=== PATIENT | male | born 1960 | race Caucasian/White ===

== ENCOUNTER 2017-07-23 17:10 | Inpatient (IN) | payer MEDICARE, MEDICAID ==
[~2017-07-23] VITALS: Ht 170.2 cm; Wt 68.5 kg
[2017-07-23] MEDS ORDERED: CHLORDIAZEPOXIDE PO (17:30)
[2017-07-23] MEDS ORDERED: VITAMINS (17:30)
[2017-07-23] MEDS ORDERED: ACET-73 PO (17:30)
--- NOTE | 2017-07-23 18:20 | NUR ---
PATIENT WAS MEDICALLY CLEARED BY DR BOWERS.
--- NOTE | 2017-07-23 18:29 | NUR ---
Pt. admitted to [facility], under care of Dr. BECKHAM Belongs List completed
[2017-07-23 18:53] VITALS: BP 124/81
[2017-07-23] MEDS ORDERED: ACETAMINOPHEN 325 MG TABLET PO PRN (20:15)
[2017-07-23] MEDS ORDERED: MAG HYDROX/AL HYDROX/SIMETH 30 ML LIQUID UDC PO PRN (20:15)
[2017-07-23] MEDS ORDERED: MAGNESIUM HYDROXIDE 30 ML LIQUID UDC PO PRN (20:15)
[2017-07-23] MEDS ORDERED: TEMAZEPAM 7.5 MG CAPSULE PO PRN (20:15)
[2017-07-23] MEDS ORDERED: LORAZEPAM 1 MG TABLET PO PRN (20:15)
[2017-07-23 20:47] VITALS: BP 114/79
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
--- NOTE | 2017-07-24 06:48 | NUR ---
YESTERDAY'S ADMISSION. GRADUALLY ADJUSTING TO HIS NEW ENVIRONMENT.SLEPT WELL APPROX. 8HRS.NO EXPRESSIONS OF SADNESS OR HEARING VOICES.WILL COTINUE TO MONITOR.
[2017-07-24 07:14] LABS: BASOPHILS # (AUTO) 0.1 K/uL (0.0-8.0); BASOPHILS % (AUTO) 0.9 % (0.0-2.0); EOSINOPHILS # (AUTO) 0.1 K/uL (0.0-0.7); HEMATOCRIT 42.3 % (36.7-47.1); HEMOGLOBIN 14.9 g/dL (12.5-16.3); LYMPHOCYTES # (AUTO) 1.8 K/uL (20.0-40.0); LYMPHOCYTES % (AUTO) 25.2 % (20.5-51.5); MEAN CORPUSCULAR HEMOGLOBIN 32.9 uug (23.8-33.4); MEAN CORPUSCULAR HGB CONC 35 g/dL (32.5-36.3); MEAN CORPUSCULAR VOLUME 93.7 fL (73.0-96.2); MONOCYTES # (AUTO) 0.6 K/uL (2.0-10.0); MONOCYTES % (AUTO) 9.1 % (0.0-11.0); NEUTROPHILS # (AUTO) 4.4 K/uL (1.8-8.9); NEUTROPHILS % (AUTO) 62.8 % (38.5-71.5); PLATELET COUNT (AUTO) 320 K/uL (152-348); RED BLOOD CELL COUNT(AUTO) 4.52 MIL/uL (4.06-5.63)
[2017-07-24 07:30] VITALS: BP 117/68
[2017-07-24 07:30] LABS: BILIRUBIN,TOTAL 0.4 mg/dL (0.2-1.0); CREATININE 1.2 mg/dL (0.6-1.3); POTASSIUM 4.1 mmol/L (3.5-5.1); TOTAL PROTEIN, SERUM 6.8 g/dL (6.4-8.2)
[2017-07-24 08:19] LABS: THYROID STIMULATING HORMONE 4.452 mIU/mL (0.358-3.740)
[2017-07-24] MEDS ORDERED: PNEUMOCOCCAL 23-VAL P-SAC VAC 0.5 ML VIAL IM ONE (10:00)
[2017-07-24 15:51] VITALS: BP 104/73
[2017-07-24 20:27] VITALS: BP 114/87
[2017-07-25 07:30] VITALS: BP 103/64
[2017-07-25] MEDS: SERTRALINE HCL 50 MG TABLET PO SCH (08:54)
[2017-07-25 15:41] VITALS: BP 132/81
[2017-07-25 20:18] VITALS: BP 102/67
[2017-07-26 07:30] VITALS: BP 98/60
[2017-07-26 08:03] LABS: *BILIRUBIN,URIN NEGATIVE (NEGATIVE); *BLOOD, URINE NEGATIVE (NEGATIVE); *CLARITY,URINE CLEAR (CLEAR); *COLOR,URINE YELLOW (YELLOW); *KETONES,URINE NEGATIVE (NEGATIVE); *PROTEIN,URINE NEGATIVE (NEGATIVE); LEUKOCYTE ESTERASE ,URINE NEGATIVE (NEGATIVE); NITRITE, URINE NEGATIVE (NEGATIVE); UGLUCOSE NEGATIVE (NEGATIVE)
[2017-07-26] MEDS: SERTRALINE HCL 50 MG TABLET PO SCH (08:10)
[2017-07-26 08:30] LABS: BACTERIA,URINE FEW /HPF (NONE SEEN); RBC,URINE 0-3 /HPF (0-3); SQUAMOUS EPITHELIAL CELL,UR FEW /HPF (NONE SEEN); WBC,URINE 0-3 /HPF (0-3)
--- NOTE | 2017-07-26 14:13 | NUR ---
Initial DC Plan: Patient currently lives in a shed, but is currently unable to provide a specific address. SW will follow up with MD, patient, and patient's sister to discuss most appropriate discharge plans. Patient will be provided a brief substance abuse intervention and provided outpatient referrals. SW will form a safe and proper discharge.
[2017-07-26 15:39] VITALS: BP 113/68
[2017-07-26] MEDS ORDERED: IBUPROFEN 400 MG TABLET PO PRN (16:00)
[2017-07-26] MEDS: LIDOCAINE 5% PATCH TD SCH (16:16)
[2017-07-26 19:30] VITALS: BP 127/78
--- NOTE | 2017-07-26 20:00 | NUR ---
RECEIVED PATIENT IN THE DAY ROOM, HE IS NOTED A/O X 3, PLEASANT AND COOPERATIVE. NOTED HYPERVERBAL, FAIR INSIGHT TO THE REASON FOR HER ADMISSION. HE STATED, "AFTER I AM D/C FROM THIS HOSPITAL I AM GOING TO STAY WITH MY SISTER". HE DENIES SI/HI/VH/AH AND HE IS ABLE TO CFS. ABLE TO COMPLY WITH MEDICATION REGIMENT AT THIS TIME. SAFETY EMPHASIS. WILL CONTINUE TO MONITOR.
--- NOTE | 2017-07-27 06:31 | NUR ---
PATIENT SLEPT FOR APPROX 7.30 HRS THROUGH THE NIGHT. HAD A SHOWER THIS MORNING. WILL CONTINUE TO MONITOR.
[2017-07-27 07:05] LABS: BASOPHILS # (AUTO) 0.1 K/uL (0.0-8.0); BASOPHILS % (AUTO) 1.2 % (0.0-2.0); EOSINOPHILS # (AUTO) 0.2 K/uL (0.0-0.7); EOSINOPHILS % (AUTO) 2.7 % (0.0-7.0); HEMATOCRIT 45.5 % (36.7-47.1); HEMOGLOBIN 15.8 g/dL (12.5-16.3); LYMPHOCYTES # (AUTO) 1.9 K/uL (20.0-40.0); LYMPHOCYTES % (AUTO) 22.8 % (20.5-51.5); MEAN CORPUSCULAR HEMOGLOBIN 32.9 uug (23.8-33.4); MEAN CORPUSCULAR HGB CONC 35 g/dL (32.5-36.3); MEAN CORPUSCULAR VOLUME 94.5 fL (73.0-96.2); MONOCYTES # (AUTO) 0.6 K/uL (2.0-10.0); MONOCYTES % (AUTO) 7.6 % (0.0-11.0); NEUTROPHILS # (AUTO) 5.5 K/uL (1.8-8.9); NEUTROPHILS % (AUTO) 65.7 % (38.5-71.5); PLATELET COUNT (AUTO) 371 K/uL (152-348); RED BLOOD CELL COUNT(AUTO) 4.81 MIL/uL (4.06-5.63); WHITE BLOOD COUNT (AUTO) 8.3 K/uL (3.6-10.2)
[2017-07-27 07:16] LABS: CREATININE 1.3 mg/dL (0.6-1.3); MAGNESIUM 2.2 mg/dL (1.8-2.4); PHOSPHOROUS 3.9 mg/dL (2.5-4.9); POTASSIUM 4.4 mmol/L (3.5-5.1)
[2017-07-27 08:00] VITALS: BP 98/63
[2017-07-27] MEDS: SERTRALINE HCL 50 MG TABLET PO SCH (09:02)
[2017-07-27] MEDS: LIDOCAINE 5% PATCH TD SCH (09:02)
[2017-07-27 16:00] VITALS: BP 108/66
[2017-07-27 19:30] VITALS: BP 119/81
--- NOTE | 2017-07-27 20:00 | NUR ---
RECEIVED PATIENT IN THE DAY ROOM, HE IS NOTED A/O X 3, PLEASANT AND COOPERATIVE. FAIR INSIGHT TO THE REASON FOR HIS ADMISSION. HE DENIES SI/HI/VH/AH AND HE IS ABLE TO CFS. ABLE TO COMPLY WITH MEDICATION REGIMENT AT THIS TIME. SAFETY EMPHASIS. WILL CONTINUE TO MONITOR.
[2017-07-28 08:00] VITALS: BP 97/61
[2017-07-28] MEDS: LIDOCAINE 5% PATCH TD SCH (08:57)
[2017-07-28] MEDS: SERTRALINE HCL 50 MG TABLET PO SCH (09:09)
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
[2017-07-28 16:00] VITALS: BP 104/52
[2017-07-28 20:58] VITALS: BP 107/58
--- NOTE | 2017-07-29 06:10 | NUR ---
GPS/NSG Patient first observed lying in bed. Patient had no HS medication, offered prn for sleep however did not require it. Patient slept a total of eight hours, continue to monitor for safety as well as follow plan of care.
[2017-07-29 07:30] VITALS: BP 103/61
[2017-07-29] MEDS: SERTRALINE HCL 50 MG TABLET PO SCH (09:15)
[2017-07-29] MEDS: LIDOCAINE 5% PATCH TD SCH (09:16)
[2017-07-29 15:47] VITALS: BP 103/61
[2017-07-29 21:37] VITALS: BP 116/72
[2017-07-30 07:30] VITALS: BP 92/50
[2017-07-30] MEDS: SERTRALINE HCL 50 MG TABLET PO SCH (08:40)
[2017-07-30] MEDS: LIDOCAINE 5% PATCH TD SCH (08:41)
[2017-07-30 16:59] VITALS: BP 112/62
[2017-07-30 20:00] VITALS: BP 110/65
[2017-07-31 07:30] VITALS: BP 99/60
[2017-07-31] MEDS: LIDOCAINE 5% PATCH TD SCH (08:21)
[2017-07-31] MEDS: SERTRALINE HCL 50 MG TABLET PO SCH (08:21)
[2017-07-31 15:23] VITALS: BP 100/62
--- NOTE | 2017-07-31 17:45 | NUR ---
Pt without significant change in condition during shift. Pt initiates interaction with staff and peers. Noted attending group activities of his choice in the dayroom. Compliant with medications and plan of care at this time. Denies suicidal/homicidal ideations, CFS. Noted with good apetite during meals. Will continue to monitor.
[2017-07-31 20:00] VITALS: BP 96/69
--- NOTE | 2017-08-01 05:43 | NUR ---
Pt SLEPT WELL THROUGHOUT THE NIGHT, NO PRN MEDS GIVEN, NO DISTRESS NOTED, CONTINUES TO BE COMPLIANT AND COOPERATIVE WITH MEDS AND CARE STAFF THIS MORNING. Pt AGREED TO SHOWER THIS MORNING, IN GOOD MOOD THIS MORNING SINCE HE KNOWS HE'S GETTING DISCHARGED TODAY.
[2017-08-01 07:30] VITALS: BP 99/63
[2017-08-01] MEDS: SERTRALINE HCL 50 MG TABLET PO SCH (08:44)
[2017-08-01] MEDS: LIDOCAINE 5% PATCH TD SCH (08:44)
--- NOTE | 2017-08-01 09:05 | NUR ---
Discharge Note: Patient will be discharged to [facility] [[address] [place] [address]; ] via ambulance. KORI spoke with LUIS and Artur from [facility] who confirmed they can accept patient. Patient is alert and oriented x4, and denies SI and HI. Patient is aware and agreeable to discharge plans. KORI spoke to patient's sister Bel Verma [[phone]] who is aware and agreeable to discharge plans. Patient will follow up with Dr. Short ([employer] Heel Flap Trimmer) and either Dr. Sandra or Dr. So (Psychiatrists) at the facility. Patient was provided a brief substance abuse intervention for polysubstance use and provided referrals for [facility] [ ], [facility] [ ], and [facility] [ ]. Patient was provided smoking cessation referrals for [employer] and [employer] [phone]. Patient was also referred to the Nicotine Anonymous phone meeting schedule [[phone]].
--- NOTE | 2017-08-01 13:45 | NUR ---
GPS: Nursing Notes: Discharge Notes: Patient is awake and responding to his name, cooperative with nursing care, compliant with his medications, following staff directions, denies any SI/HI, denies any AH/VH, denies any pain or discomfort, denies any SOB, discharge to [facility] at [address] [place] [id number] . report given to facility's nurse Mell, wireworker supervisor spoke to patient's sister Bel Verma [[phone]] who is aware and agreeable to discharge plans. Patient will follow up with Dr. Short (Design Manager) and either Dr. Sandra or Dr. So (Psychiatrists) at the facility. Patient was provided a brief substance abuse intervention for polysubstance use and provided referrals for [facility] [ ], [facility] [ ], and [facility] [ ]. Patient was provided smoking cessation referrals for [employer] and [employer] [phone]. Patient was also referred to the Nicotine Anonymous phone meeting schedule [[phone]].
== END 2017-08-01 13:45 | DRG 885 ==
LOC: ER 17:11 → GPS 18:29
PROVIDERS: ADMIT Psychiatry & Neurology Psychiatry; ATTEND Internal Medicine
DX: F33.2 Major depressive disorder, recurrent severe without psychotic features (principal); E44.0 Moderate protein-calorie malnutrition; F10.10 Alcohol abuse, uncomplicated; Y90.9 Presence of alcohol in blood, level not specified; F19.10 Other psychoactive substance abuse, uncomplicated; Z59.0 Homelessness; F43.10 Post-traumatic stress disorder, unspecified; S60.512A Abrasion of left hand, initial encounter; S40.812A Abrasion of left upper arm, initial encounter; X58.XXXA Exposure to other specified factors, initial encounter; Y92.89 Other specified places as the place of occurrence of the external cause; Z68.23 Body mass index [BMI] 23.0-23.9, adult; I10 Essential (primary) hypertension; R79.89 Other specified abnormal findings of blood chemistry; Z88.6 Allergy status to analgesic agent; Z88.0 Allergy status to penicillin
CPT/HCPCS: 36415; 83735; 84100; 84443; 85025; 87086; 90732; 93005; A4663